=== PATIENT | female | born 1975 | race Caucasian/White ===

== ENCOUNTER → 2017-05-29 | Outpatient (CLI) | payer BC ==
[~2017-05-29] VITALS: Ht 172.7 cm; Wt 86.2 kg
[~2017-05-29] MED LIST: GADOBUTROL 7.5 MMOL/7.5 ML (GADAVIST) VIAL IV ONE; IOHEXOL 300 MG/ML 50 ML (OMNIPAQUE 300) VIAL IV ONE; LIDOCAINE 1% INJ 20 ML (XYLOCAINE) VIAL INJ ONE
[2017-05-29 12:43] VITALS: BP 120/67
--- NOTE | 2017-05-29 13:38 | Diagnostic Imaging Report ---
EXAMINATION: Fluoroscopic guided joint injection/arthrogram- right. INDICATION: Right shoulder pain, request for MR arthrogram of the shoulder is submitted. Fluoroscopy time: 16 seconds CONSENT: Informed consent was obtained from the patient. The risks, benefits, potential complications and alternatives were reviewed and all questions answered to the patient's satisfaction. PROCEDURE: After sterile preparation and draping, 1% lidocaine was utilized for local anesthesia. A 22 spinal needle is introduced into the glenohumeral joint under fluoroscopic guidance. After confirmation of proper positioning with intra-articular injection of, 10 ml of 1:150 concentration of Gadavist in normal saline is injected the into the joint. The patient tolerated the procedure well with no immediate complications. FINDINGS: Arthrogram demonstrates Normal distribution of contrast in the joint with no filling of the subacromial subdeltoid bursa seen. IMPRESSION: Successful fluoroscopic guided injection of diluted gadolinium into the right shoulder. MR arthrogram to follow. Dictated by: Dictated on workstation # [id number]
--- NOTE | 2017-05-29 16:08 | Diagnostic Imaging Report ---
EXAMINATION: Multiplanar, multisequence MRI of the right shoulder is performed with intra-articular contrast. INDICATION: Right shoulder pain. History of recent and old injuries. FINDINGS: There is no os acromiale or Hill-Sachs deformity. The acromioclavicular joint demonstrates mild degenerative changes with small inferior osteophytes. There is good distention of the shoulder joint with contrast. There is contrast leakage into the subacromial subdeltoid bursa. This appears to be related to a full-thickness tear involving the supraspinatus tendon anteriorly with minimal retraction. The rest of the supraspinatus tendon demonstrates high-grade partial tear. The infraspinatus demonstrates extension of partial tearing into its anterior fibers only. The subscapular tendon demonstrates no definite abnormality. The long head biceps tendon is in its groove. There is vertical signal undercutting the superior labrum seen on coronal images 10 and 11 just posterior to the biceps anchor suggestive of partial tear. The muscle bulk and the signal around the shoulder is normal. IMPRESSION: 1. Full-thickness and high-grade partial tears involving primarily the supraspinatus tendon fibers. 2. There is suggestion of a partial tear involving the undersurface of the superior segment of the labrum. Dictated by: Dictated on workstation # [id number]
== END ==
LOC: RAD 12:23
PROVIDERS: ATTEND Orthopaedic Surgery
DX: S46.011A Strain of muscle(s) and tendon(s) of the rotator cuff of right shoulder, initial encounter (principal); X58.XXXA Exposure to other specified factors, initial encounter; Y99.8 Other external cause status
CPT/HCPCS: 23350; 73040; 73222

== ENCOUNTER → 2018-04-23 | Outpatient (CLI) | payer BC ==
--- NOTE | 2018-04-23 11:02 | Diagnostic Imaging Report ---
INDICATION: Routine screening. Comparison is made with prior mammogram from 01/19/2016 and 05/16/2013. 2-D and 3-D bilateral screening mammography was performed with Computer Aided Detection (CAD) system. FINDINGS: Both breasts are heterogeneously dense, limiting the sensitivity of mammography. The parenchymal pattern appears stable. No mass or malignant appearing microcalcifications are seen. The axillae are unremarkable. IMPRESSION: No mammographic features suspicious for malignancy are identified. ACR BI-RADS Category 1: Negative. Result letter will be mailed to the patient. Note: At least 10% of breast cancer is not imaged by mammography. Dictated by: Dictated on workstation # [id number]
== END ==
LOC: RAD 08:19
PROVIDERS: ATTEND Nurse Practitioner
DX: Z12.31 Encounter for screening mammogram for malignant neoplasm of breast (principal)
CPT/HCPCS: 77067

== ENCOUNTER 2018-04-30 05:46 | Outpatient (CLI) | payer BC ==
[~2018-04-30] VITALS: Ht 172.7 cm; Wt 86.2 kg
[2018-04-30] MEDS ORDERED: BUDE10.2 IH (13:17)
[2018-04-30] MEDS ORDERED: LEVO125T6 PO (13:17)
[2018-04-30] MEDS ORDERED: RT-ALBUINH IH (13:17)
== END 2018-04-30 13:58 | disposition home or self-care (01) ==
LOC: PREOP 05:46
PROVIDERS: ATTEND Obstetrics & Gynecology
DX: Z01.818 Encounter for other preprocedural examination (principal)

== ENCOUNTER → 2019-09-30 | Outpatient (CLI) | payer BC, OTHER ==
[~2019-09-30] MED LIST changes: +ACHD5005 PO; +BUDE10.2 IH; -GADOBUTROL 7.5 MMOL/7.5 ML (GADAVIST) VIAL IV ONE; +IBUP-844 PO; -IOHEXOL 300 MG/ML 50 ML (OMNIPAQUE 300) VIAL IV ONE; +LEVO125T6 PO; -LIDOCAINE 1% INJ 20 ML (XYLOCAINE) VIAL INJ ONE; +RT-ALBUINH IH
--- NOTE | 2019-09-30 16:08 | Diagnostic Imaging Report ---
INDICATION: Routine screening. COMPARISON is made with prior mammograms 04/23/2018 and 01/19/2016. 2-D and 3-D bilateral screening mammography was performed with CAD. Both breasts remain heterogeneously dense, limiting the sensitivity of mammography. No dominant mass or malignant appearing microcalcifications are seen. The axillae are unremarkable. IMPRESSION: BI-RADS Category 1 No mammographic features suspicious for malignancy are identified. ACR BI-RADS Category 1: Negative. Result letter will be mailed to the patient. Note: At least 10% of breast cancer is not imaged by mammography. Dictated by: Dictated on workstation # [id number]
== END ==
LOC: RAD 14:38
PROVIDERS: ATTEND Nurse Practitioner
DX: Z12.31 Encounter for screening mammogram for malignant neoplasm of breast (principal)
CPT/HCPCS: 77067

== ENCOUNTER → 2020-12-29 | Outpatient (CLI) | payer BC ==
--- NOTE | 2020-12-29 12:36 | Diagnostic Imaging Report ---
INDICATION: Routine screening. COMPARISON: 09/30/2019 and 04/23/2018. TECHNIQUE: 2D and 3D bilateral screening mammography was performed with CAD. FINDINGS: Both breasts are heterogeneously dense, limiting the sensitivity of mammography. The parenchymal pattern is stable. No mass or malignant appearing microcalcifications are seen. The axillae are unremarkable. IMPRESSION: No mammographic features suspicious for malignancy are identified. ACR BI-RADS Category 1: Negative. Result letter will be mailed to the patient. Note: At least 10% of breast cancer is not imaged by mammography. Dictated by: Dictated on workstation # [id number]
== END ==
LOC: RAD 10:00
PROVIDERS: ATTEND Surgery
DX: Z12.31 Encounter for screening mammogram for malignant neoplasm of breast (principal)
CPT/HCPCS: 77063; 77067

== ENCOUNTER → 2023-07-20 | Outpatient (CLI) | payer BC ==
[~2023-07-20] MED LIST changes: +ALBU8.5H6 IH; -RT-ALBUINH IH
--- NOTE | 2023-07-20 17:35 | Diagnostic Imaging Report ---
3-D bilateral screening mammogram. 2-D and 3-D bilateral screening mammography was performed with CAD. COMPARISON: This study was compared to the prior exams of 12/29/2020 and 09/30/2019. There are no current complaints. TECHNIQUE: 3-D bilateral screening mammogram The current study was also evaluated with a Computer Aided Detection (CAD) system. FINDINGS: The fibroglandular tissue in both breasts is heterogeneously dense. This does limit the sensitivity of this exam. Overall, there does not appear to have been any significant change when compared to the prior study. No primary or secondary sign of malignancy is noted. IMPRESSION: There is no radiographic evidence for malignancy. BI-RADS CATEGORY: 1. NEGATIVE. ACR BI-RADS Category 1: Negative. Result letter will be mailed to the patient. Note: At least 10% of breast cancer is not imaged by mammography. Dictated by: Dictated on workstation # [id number]
== END ==
LOC: RAD 15:15
PROVIDERS: ATTEND Nurse Practitioner
DX: Z12.31 Encounter for screening mammogram for malignant neoplasm of breast (principal)
CPT/HCPCS: 77063; 77067